=== PATIENT | male | born 1995 | race Caucasian/White ===

== ENCOUNTER 2023-08-13 16:15 | Outpatient (RCR) | payer OTHER, SELFPAY | END 2023-08-13 16:38 | disposition home or self-care (01) | PROVIDERS: Visit Provider Orthopaedic Surgery | DX: S93.401A Sprain of unspecified ligament of right ankle, initial encounter (principal); M89.9 Disorder of bone, unspecified; M94.9 Disorder of cartilage, unspecified; Z51.89 Encounter for other specified aftercare | CPT/HCPCS: 97110; 97112; 97140; 97161 ==